=== PATIENT | male | born 1985 | race Hispanic/Latino ===

== ENCOUNTER → 2018-01-22 | Emergency (ER) ==
[~2018-01-22] MED LIST: ALBUTEROL SULF 0.083% NEB SOLN 3 ML NEB ONE; IPRATROPIUM BROMIDE 0.02% 2.5 ML NEB ONE; MAGNESIUM SULFATE 2GM/50ML 50 ML IV ONE
== END | disposition left against medical advice (07) ==
LOC: ER 07:26
DX: S99.919A Unspecified injury of unspecified ankle, initial encounter (principal)